=== PATIENT | male | born 1935 | race Caucasian/White ===

== ENCOUNTER → 2023-09-20 13:34 | Outpatient (REF) | payer OTHER, SELFPAY | LOC: DHCBC HW 13:34 | PROVIDERS: ATTENDING PHYSICIAN Internal Medicine Cardiovascular Disease; FAMILY PHYSICIAN Family Medicine | DX: I48.91 Unspecified atrial fibrillation (principal); Z95.1 Presence of aortocoronary bypass graft; I25.5 Ischemic cardiomyopathy; I25.119 Atherosclerotic heart disease of native coronary artery with unspecified angina pectoris; I49.3 Ventricular premature depolarization | CPT/HCPCS: 93306 ==

== ENCOUNTER 2024-01-02 08:37 | Inpatient (IN) | payer OTHER, SELFPAY ==
[2024-01-01] VITALS (8 sets, daily range): BP systolic 117–181; BP diastolic 57–104; BMI 26.5; BMI 26.8
--- NOTE | 2024-01-01 07:41 | ED.GENMED ---
History of Present Illness
General
Chief Complaint: Eye Problems
Source: patient
Exam Limitations: none
Time Seen by Provider: 01/01/24 07:23
Nursing documentation reviewed up to this point in time: agreed with
Travel History
Have you had any contact with someone who has COVID-19?: No
Do you have any symptoms of coronavirus? Fever > 100 degrees, chills, cough, shortness of breath, sore throat, loss of taste or smell, muscle aches, or headache?: No
History of Present Illness
History of Present Illness:
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
of visual disturbance. Patient was last around 7:30 PM he was watching TV when he noticed he was having double vision. He reports when he closes his left eye the double vision resolved. When he went to bed he noticed that his left eye seemed a
little droopy. He did not sleep well because he was worried and this morning continues to have double vision again when he closes his left eye his vision is better. He denies any associated headache numbness tingling weakness in extremities. He
did however drive himself here to the ER.
He does report 2 weeks ago he out and did trip and hit the left side of his head. He is not on blood thinners.
Review of Systems
Review of Systems
Allergies reviewed?: Yes
All Other Systems: ROS reviewed and negative except as documented in HPI and ROS
Constitutional: Reports no symptoms; Denies fever, fatigue or chills
EENT: Reports other (Double vision from left eye)
Cardiac: Reports no symptoms
ABD/GI: Reports no symptoms
: Reports no symptoms
Musculoskeletal: Reports no symptoms
Skin: Reports no symptoms
Neurological: Denies dizzy or headache
Psychiatric: Reports no symptoms
Phy Exam
General Physical Exam
General Presentation: no apparent distress
General age: appears stated age
General Skin: warm and dry
General Habitus: normal
General Mental: alert
General Hydration: appears well hydrated
Eye Exam
Eye Exam: PERRL and other (left eye with decreased adduction slight ptosis of left eye and in theFollow-up with)
Eye Exam General: PERRL: bilateral
Pupil Exam: Bilateral: round and reactive
Cardiovascular Exam
Cardiovascular Exam: regular rate/rhythm, no murmur and normal peripheral pulses
Pulmonary Exam
Pulmonary Exam: lungs clear and no respiratory distress
Neurological Exam
Neurological Exam: alert, oriented x3, no motor deficits, normal reflexs and speech normal
Musculoskeletal Exam
Musculoskeletal Exam: full ROM
Skin Exam
Skin Exam: normal color and warm/dry
Psychiatric Exam
Psychiatric Exam: normal mood/affect
Course
Orders/Labs/Results
Orders:
Orders
01/01/24 07:39
CT Head W/o Iv Contrast Urgent
Comment:
Reason For Exam: double vision
01/01/24 07:40
Cardiac Monitoring- Treatment ONCE
IV Insert/Care/Rem.- Treatment PRN
01/01/24 07:41
Electrocardiogram (*1) Stat
Reason for Study: Other
Other Reason for Exam: chest pain
EKG- Treatment ONCE
01/01/24 08:20
Acetylcholine Receptor Bind Ab [S] Urgent
Comment: ADD-ON
Complete Blood Count/With Diff Urgent
Comprehensive Metabolic Panel Urgent
Troponin I Urgent
01/01/24 09:55
MRI Brain [MR Brain W/o & With Contrast] Urgent
Comment:
Reason For Exam: double vision
OK for patient to be off Cardiac Monitoring for MRI: Yes
Recent pill cam endoscopy?: No
01/01/24 09:56
MA [facility] [place] [facility] Urgent
Reason For Exam: double vision
OK for patient to be off Cardiac Monitoring for MRI: Yes
Recent pill cam endoscopy?: No
01/01/24 09:58
Add On- LAB Routine
Tests Added?: Acetylcholine blocking, binding, modulating antibodies
01/01/24 15:57
Clopidogrel Bisulfate [Plavix] 300 mg PO NOW STA
US Cerebrovascular Routine
Comment:
Reason For Exam: Stroke workup
01/01/24 15:58
Echo 2D MMode Color/Doppler Routine
Reason for Study: Thrombotic source for stroke-like sxs
01/02/24 08:00
Clopidogrel Bisulfate [Plavix] 75 mg PO DAILY
Abnormal Lab Results
01/01/24 01/01/24
08:20 12:06
RBC 3.97 L 10^6/uL
(4.70-6.10)
Hct 38.5 L %
(39.0-52.0)
MCV 97.0 H fL
(80.0-94.0)
MCH 33.0 H pg
(27.0-31.0)
BUN 24 H mg/dl
(9-20)
Glucose 271 H mg/dl
(70-99)
Alkaline Phosphatase 145 H U/L
(38-126)
POC Glucose 148 H mg/dl
(70-99)
01/01/24 08:20
01/01/24 08:20
Vital Signs
Initial and Last Documented VS:
Initial Vital Signs
Temp Pulse Resp BP Pulse Ox
98.0 F 72 16 181/89 98
01/01/24 06:52 01/01/24 06:52 01/01/24 06:52 01/01/24 06:52 01/01/24 06:52
Last Documented Vital Signs
Temp Pulse Resp BP Pulse Ox
98.0 F 65 12 155/104 99
01/01/24 06:52 01/01/24 10:15 01/01/24 10:15 01/01/24 09:30 01/01/24 10:15
Soccer Commentator consulted with Physician
Soccer Commentator consulted with physician?: Yes
Name of Physician Consulted: Missy
MDM/Problems Addressed
Differential Diagnosis Includes:
Not limited to palsy, CVA
MDM/Problems Addressed:
Patient is an 88-year-old male who presented with blurry vision and double vision from his left eye which started last night. Patient with no associated headache. No acute findings on CAT scan. Patient has no other neurological deficits. Patient
was eval by neurology who does feel that this is likely a palsy. 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
1603:
MRA :
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 Neuro aware DR Craven ordered
plavix will admit
*Radiology
Radiology exam reviewed: radiology read reviewed
*Pulse Oximetry
Patient hypoxic: no
*EKG
Interpreted by ED Provider?: Yes
Interpretation: abnormal
Heart Rate: 62
Rate: normal
Rhythm: sinus
Ischemia: no ischemia
*Critical Care Note
Total Time (30-74mins, 75-104mins- exclusive of procedures): Not Applicable
ED Attending Note
-
Portions of this chart may have been created with voice recognition software.� Occasional wrong word or��sound alike� substitutions may have occurred due to the inherent limitations of voice recognition software.
Discharge Plan
Departure
Patient Disposition: Admit
Date of Disposition: 01/01/24
Time of Disposition: 16:16
Admit to: Telemetry
Admit to doctor: hospitalist
Presentation/result/management discussed w/ accepting MD/DO: Hospitalist
Patient with high blood pressure during this ER visit?: Yes
Condition: Fair
Covid-19: Not Applicable
Discharge Problem:
Acute CVA (cerebrovascular accident), Diplopia
Prescriptions:
No Action
insulin glargine [Lantus U-100 Insulin] 1,000 UNITS/10 ML solution
40 units SC HS
atenolol 100 MG tablet
50 mg PO HS
allopurinol 100 MG tablet
200 mg PO .DINNER
aspirin 81 MG tablet,delayed release (DR/EC)
81 mg PO DAILY
simvastatin 20 MG tablet
20 mg PO HS
metformin 1,000 MG tablet
1,000 mg PO BID
hydrochlorothiazide 25 MG tablet
25 mg PO DAILY
acetaminophen 325 MG tablet
650 mg PO Q4HPRN PRN (Reason: TEMP > 102 F) Qty: 0 0RF
amiodarone [Pacerone] 200 MG tablet
200 mg PO BID Qty: 90 3RF
Rx Instructions:
Take one tablet twice daily for 7 days, then thereafter reduce to one table daily until you see your Brake Coupler Dinkey. Then reevaluate with Cardiology.
multivitamin with folic acid [Tab-A-Joslyn] 1 TABLET tablet
1 tab PO DAILY 0RF
guaifenesin [Mucus Relief ER] 600 MG tablet extended release 12hr
600 mg PO Q12 Qty: 14 0RF
Rx Instructions:
One tablet twice daily for 7 days then stop
famotidine 20 MG tablet
20 mg PO DAILY 30 Days 0RF
oxycodone 5 MG tablet
5 mg PO Q6HPRN PRN (Reason: pain) Qty: 40 0RF
warfarin [Jantoven] 2.5 MG tablet
2.5 mg PO QPM Qty: 90 3RF
Rx Instructions:
Take 5 mg (2 tablets) daily or as directed by your Physician for a target INR of 2.0-3.0
Referrals:
Sebastian Roman MD [Family Provider] -
Interventions
Interventions:
*Risk Screen - Suicide Last Done: 01/01/24 08:24
*General Assessment Last Done: 01/01/24 08:24
*Neglect/Abuse Screening Last Done: 01/01/24 08:24
ED- Fall Risk Assessment Last Done: 01/01/24 08:24
*ED COVID-19 Vaccine History Last Done: 01/01/24 06:52
Discharge Date and Time
Print Language: ANDORRAN
[2024-01-01 08:28] LABS: % Basophils 1.4 % (0-2); % Eosinophils 2.1 % (0-6); % Immature Granulocytes 0.2 % (0-0.5); % Lymphocytes 24.3 % (20.5-51.1); % Monocytes 8.9 % (1.7-9.3); % Neutrophils 63.1 % (42.2-75.2); Absolute Basophils 0.1 10^3/uL (0-0.2); Absolute Eosinophils 0.1 10^3/uL (0-0.7); Absolute Lymphocytes 1.4 10^3/uL (1.2-3.4); Absolute Monocytes 0.5 10^3/uL (0.1-0.6); Absolute Neutrophils 3.5 10^3/uL (1.4-6.5); Hematocrit 38.5 % (39.0-52.0); Hemoglobin 13.1 g/dL (13.0-18.0); Mean Platelet Volume 9.6 fL (7.4-10.4); Nucleated Red Blood Cells % 0 % (-); Platelet Count 235 10^3/uL (130-400); Red Blood Cell Count 3.97 10^6/uL (4.70-6.10); White Blood Cell Count 5.6 10^3/uL (4.8-10.8)
[2024-01-01 08:41] LABS: ALT (SGPT) 19 U/L (0-50); AST (SGOT) 23 U/L (17-59); Albumin 3.6 g/dl (3.5-5.0); Alkaline Phosphatase 145 U/L (38-126); Blood Urea Nitrogen 24 mg/dl (9-20); Calcium 8.8 mg/dl (8.4-10.2); Carbon Dioxide 26 mmol/L (22-30); Chloride 101 mmol/L (98-107); Glucose 271 mg/dl (70-99); Potassium 4.9 mmol/L (3.5-5.1); Sodium 135 mmol/L (135-145); Total Bilirubin 0.5 mg/dl (0.2-1.3); Total Protein 6.5 g/dl (6.3-8.2); eGFR > 60.00
[2024-01-01 08:52] LABS: Troponin I < 0.012 ng/ml
--- NOTE | 2024-01-01 09:58 | CON.NEURO4 ---
Addendum entered and electronically signed by Norman Craven MD 01/01/24 16:01:
MRI brain reviewed there is an acute stroke in the right tania which does explain the patient's symptoms, although typically such as stroke would probably occur in the midbrain the MRI clearly shows a stroke on the right side of the tania and this
probably affected areas of horizontal gaze and muscle control on the right eye producing his presenting symptoms.
No endovascular therapy would be warranted for the vertebral artery.
Stroke etiology most likely small vessel disease versus atheroembolic from the vertebral artery occlusion
Recommendations
-Admission for acute stroke
-NIH and neurologic checks
-Plavix 300 mg now and start DAPT tomorrow
-Check TTE and carotid ultrasound
-Goal normotension, would aim for SBP less than 180
Original Note:
Consultation - Neurology 4
-
CONSULTING PHYSICIAN: Fran Craven
REFERRING PHYSICIAN: ER
DICTATED BY: Fran Craven
DATE/TIME OF REQUEST: 01/01/24
DATE/TIME OF CONSULTATION: 01/01/24
Reason for Consultation: Double vision, ptosis
History of Present Illness:
The patient is an 88-year-old male with a past medical history of atrial fibrillation, coronary artery disease, diabetes, CKD presents to the hospital because of double vision seem to start around yesterday evening when he was watching TV. This
was painless and there has not been any unusual headaches or eye pain in the past couple of days. He has not had any unusual headaches. He did have a fall around 2 weeks ago tripping over something and hit the left side of his head but he was able
to walk and do fine over the next couple days with no sequelae from the fall.
The double vision was described as binocular and somewhat diagonal, it is worse when he looks to the right. He has never had anything like this before. No history of any jaw claudication fevers chills or unusual weight loss. He wears glasses with
readers. No unilateral weakness or paresthesia on the face or limbs no unusual walking difficulty or slurred speech. No dysphagia.
Past Medical History: Coronary artery disease, atrial fibrillation, diabetes, hypertension, CKD
Surgical History: CABG
Family History: Non-contributory
Social History: Retired from working in [employer], he is a , lives on his own, no alcohol use at all, no tobacco
Allergies: No known drug allergies
Review of Symptoms:
Patient denies any fever, headache, chest pain, shortness of breath, GI or symptoms.
Physical Exam:
Well-appearing elderly man no signs of distress, well-groomed well-nourished no signs of trauma to the head or neck, eyes are clear with no erythema or ecchymosis or swelling near the eyes conjunctiva clear, there is left eye ptosis clearly visible.
Neck with no masses heart rate regular breathing unlabored abdomen soft nontender no lower extremity edema or rashes seen.
Neurologic Examination:
The patient is awake, alert and oriented x 3. He is able to follow commands and answer questions appropriately. There is no aphasia or dysarthria. On cranial nerve assessment, pupils are 3 mm bilateral, round and reactive to light and
accommodation. Visual hoffmann are full. V1-V3 intact to light touch bilaterally. There is significant left eye ptosis. Resting gaze is midline and conjugate. Left eye has impaired adduction. Left eye elevation, abduction, depression appear
normal. Facial sensations are intact and bilaterally symmetrical, there is no facial asymmetry. Hearing is intact bilaterally to normal conversation volume. Tongue palate and uvula are midline. Sternocleidomastoid strengths are full bilaterally.
Motor strengths are 5/5 bilateral upper and lower extremities on medical research [place] scale. There is no drift or involuntary movement noted. Deep tendon reflexes are 2+ bilateral upper and lower extremities and Babinski is absent bilaterally.
Intact to light touch throughout. There was no extinction noted on double simultaneous stimulation. Coordination is intact by finger to nose bilaterally.
Neuro Imaging: CT head non contrast
Impressions
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 MRI studies would be useful to rule out cerebral aneurysm as well as infarct of the midbrain or tania
which is unlikely based on absence of other deficits on neurologic examination and no headache. Recent head trauma is less likely to have caused the problem but is possible, head trauma more often produces a cranial nerve 4 palsy. No history of
symptoms highly suggestive of myasthenia gravis which would remain in differential.
Patient has the following risk factors for their symptoms: Diabetes, CAD, HTN
Recommendations:
1. Add on acetylcholine blocking binding and modulating antibodies
2. Check MRI of the brain with and without contrast as well as MRA of the head
3. If no infarction of the brain or aneurysm on the studies then I would presume this is a diabetic cause of partial cranial nerve III palsy, and in this case would not require any change of antithrombotics or home medications and would continue
best management of diabetes. Expect improvement over several weeks to a few months.
4. Discussed that patient needs to have an eye patch over 1 eye to resolve the diplopia but is otherwise acceptable for driving as long as he has an eye patch.
Discussed patient care with: Patient, ED
[2024-01-01 12:08] LABS: Glucose - Point of Care 148 mg/dl (70-99)
--- NOTE | 2024-01-01 16:42 | HPS.HSE ---
Family Physician
-
Family Physician: Sebastian Roman
Chief Complaint
-
double vision
History of Present Illness
88-year-old male past medical history of CAD status post CABG x 4, ischemic cardiomyopathy, hypertension, hyperlipidemia, diabetes, CKD3, presenting to the hospital due to double vision which started yesterday evening while he was watching TV. He
denies any headache or eye pain or neck pain. He had a fall 2 weeks ago tripping over something and hit the left side of his head but he had no symptoms after the fall.
Double vision occurs when he closes his right eye and looks from his left eye. He denies any fever or chills, weight loss or jaw pain. He denies any focal weakness, numbness or tingling, gait dysfunction, slurred speech or difficulty swallowing.
Patient is not sure if he has had a history of atrial fibrillation. He denies being on Coumadin or any blood thinners.
He denies smoking or alcohol use.
Medical History
Past Medical History
Past Medical History: Reports Other (CAD status post CABG x 4, ischemic cardiomyopathy, hypertension, hyperlipidemia, diabetes, CKD3)
Past Surgical History: Reports None
Social History
Tobacco: Non-smoker
Alcohol: None
Drug: None
Family History
Family History: Not pertinent
Allergies / Home Medications
Allergies reflects when Allergies were last updated in [employer].
Home Medications with original date entered in [employer]
Allergy/Medication List:
Allergies
Allergy/AdvReac Type Severity Reaction Status Date / Time
No Known Allergies Allergy Verified 01/01/24 06:54
Home Medications
allopurinol 100 mg tablet 200 mg PO .DINNER 04/25/16
aspirin 81 mg tablet,delayed release 81 mg PO DAILY 04/25/16
atenolol 100 mg tablet 50 mg PO HS 04/25/16
hydrochlorothiazide 25 mg tablet 25 mg PO DAILY 04/25/16
insulin glargine 100 unit/mL subcutaneous solution (Lantus U-100 Insulin) 40 units SC HS 04/25/16
metformin 1,000 mg tablet 1,000 mg PO BID 04/25/16
simvastatin 20 mg tablet 20 mg PO HS 04/25/16
acetaminophen 325 mg tablet 650 mg (2 x 325 mg) PO Q4HPRN PRN TEMP > 102 F ##0 05/25/16
amiodarone 200 mg tablet (Pacerone) 200 mg PO BID ##90 05/25/16
famotidine 20 mg tablet 20 mg PO DAILY 30 days 05/25/16
guaifenesin 600 mg tablet, extended release 12 hr (Mucus Relief ER) 600 mg PO Q12 ##14 05/25/16
multivitamin with folic acid 400 mcg tablet (Tab-A-Joslyn) 1 tab PO DAILY 05/25/16
oxycodone 5 mg tablet 5 mg PO Q6HPRN PRN pain #40 tabs 05/25/16
warfarin 2.5 mg tablet (Jantoven) 2.5 mg PO QPM #90 tabs 05/25/16
Review of Systems
-
History Source: Patient
A 12 point ROS was completed and negative except as noted: Yes
Constitutional: Reports No Symptoms
EENT: Reports No Symptoms
Respiratory: Reports No Symptoms
Cardiac: Reports No Symptoms
Abdomen/GI: Reports No Symptoms
: Reports No Symptoms
Musculoskeletal: Reports No Symptoms
Skin: Reports No Symptoms
Neurological: Reports See HPI
Endocrine: Reports No Symptoms
Hematologic/Lymphatic: Reports No Symptoms
Psych: Reports No Symptoms
Physical Exam
Vital Signs
Vital Signs
Temp Pulse Resp BP Pulse Ox
98.0 F 68 12 117/57 99
01/01/24 06:52 01/01/24 16:17 01/01/24 10:15 01/01/24 16:17 01/01/24 10:15
Physical Exam
General: Well Developed, Well Nourished and No Apparent Distress
HEENT: NormoCephalic, Moist mucous membranes and Atraumatic
Respiratory: Clear
Cardiac: S1/S2 and Regular Rhythm; No Murmur or Rub
GI: Soft, Non Tender, Non Distended and Normal Bowel Sounds; No Organomegaly
Rectal: Deferred by Provider
Musculoskeletal: No Clubbing, No Cyanosis and No Edema
Skin: No Rash
Neuro: Nonfocal/grossly intact
Laboratory Results
-
01/01/24 08:20
01/01/24 08:20
Laboratory Results
Total Bilirubin 0.5 mg/dl (0.2-1.3) 01/01/24 08:20
AST 23 U/L (17-59) 01/01/24 08:20
ALT 19 U/L (0-50) 01/01/24 08:20
Alkaline Phosphatase 145 U/L (38-126) H 01/01/24 08:20
Troponin I < 0.012 ng/ml 01/01/24 08:20
Data Reviewed
-
Lab Data: Labs Reviewed by me
Old Records: Reviewed
Impression/Plan
-
IMPRESSION:
PLAN:
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
-Neurochecks/NIH checks per protocol
-Plavix 300 mg in addition to aspirin
-Check carotid ultrasound
-Check echocardiogram
-neuro following
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
-Incidentally discovered on MRI brain
Possible history of paroxysmal atrial fibrillation
-Patient denies history of atrial fibrillation and denies being on Coumadin although old med rec has Coumadin and amiodarone
CAD status post CABG x 4
-Continue aspirin
Ischemic cardiomyopathy
Essential hypertension
-Continue atenolol
-Continue hydrochlorothiazide
Hyperlipidemia
-Continue statin
Type 2 diabetes
-Continue metformin
-Continue Lantus 40 units at night
-Insulin sliding scale
CKD 3
-Renal function at baseline
Gout
-Continue allopurinol
DNR/DNI
DVT prophylaxis�SCDs
Diabetic diet
[2024-01-01] MEDS: PLAVIX 300 MG PO (17:26)
--- NOTE | 2024-01-01 18:39 | PHANOTE ---
med rec note- patient using mail order and they only talk to the patient. patient has no pharmacy records and ecw from August 2023
[2024-01-01] MEDS: LANTUS 0.400000000000000022 UNITS SC (22:27)
[2024-01-01] MEDS: GLUCOPHAGE 1000 MG PO (22:27)
[2024-01-01] MEDS: COREG 6.25 MG PO (22:27)
[2024-01-01] MEDS: LIPITOR 40 MG PO (22:29)
[2024-01-01 22:31] LABS: Glucose - Point of Care 161 mg/dl (70-99)
[2024-01-02 03:28] VITALS: BP 149/62
[2024-01-02 07:14] LABS: % Basophils 0.9 % (0-2); % Eosinophils 1.3 % (0-6); % Immature Granulocytes 0.4 % (0-0.5); % Lymphocytes 22.1 % (20.5-51.1); % Monocytes 9.7 % (1.7-9.3); % Neutrophils 65.6 % (42.2-75.2); Absolute Basophils 0.1 10^3/uL (0-0.2); Absolute Eosinophils 0.1 10^3/uL (0-0.7); Absolute Lymphocytes 1.7 10^3/uL (1.2-3.4); Absolute Monocytes 0.8 10^3/uL (0.1-0.6); Absolute Neutrophils 5.1 10^3/uL (1.4-6.5); Hematocrit 42.2 % (39.0-52.0); Hemoglobin 14.2 g/dL (13.0-18.0); Mean Corp Hgb Conc. 33.6 g/dL (33.0-37.0); Mean Corpuscular Hgb 32.5 pg (27.0-31.0); Mean Corpuscular Volume 96.6 fL (80.0-94.0); Mean Platelet Volume 9.9 fL (7.4-10.4); Nucleated Red Blood Cells % 0 % (-); Platelet Count 278 10^3/uL (130-400); Red Blood Cell Count 4.37 10^6/uL (4.70-6.10); Red Cell Dist. Width 13.1 % (11.5-14.5); White Blood Cell Count 7.8 10^3/uL (4.8-10.8)
[2024-01-02 07:24] VITALS: BP 144/84
[2024-01-02 07:39] LABS: ALT (SGPT) 20 U/L (0-50); AST (SGOT) 24 U/L (17-59); Albumin 3.8 g/dl (3.5-5.0); Alkaline Phosphatase 138 U/L (38-126); Blood Urea Nitrogen 24 mg/dl (9-20); Calcium 9.3 mg/dl (8.4-10.2); Carbon Dioxide 28 mmol/L (22-30); Chloride 102 mmol/L (98-107); Estimated Creatinine Clearance 53 ml/min; Glucose 110 mg/dl (70-99); Potassium 5.1 mmol/L (3.5-5.1); Sodium 138 mmol/L (135-145); Total Bilirubin 0.8 mg/dl (0.2-1.3); Total Protein 6.9 g/dl (6.3-8.2); eGFR > 60.00
[2024-01-02 08:23] LABS: Glucose - Point of Care 216 mg/dl (70-99)
[2024-01-02] MEDS: GLUCOPHAGE 1000 MG PO ×2 (08:40→17:13)
[2024-01-02] MEDS: ASPIR LOW (ENTERIC COATED) 81 MG PO (08:40)
[2024-01-02] MEDS: OCUVITE SOFTGEL 1 CAP PO (08:40)
[2024-01-02] MEDS: COREG 6.25 MG PO ×2 (08:40→20:29)
[2024-01-02] MEDS: PLAVIX 75 MG PO (08:40)
[2024-01-02] MEDS: NOVOLOG FLEXPEN-LOW RESISTANCE 2 UNITS SC (08:41)
--- NOTE | 2024-01-02 08:48 | W.PN.HOSP.TC ---
Addendum entered and electronically signed by Trev Ronquillo MD 01/02/24 09:09:
Discussed with on-call mortarman Dr Ng. They will set up a 30-day Holter monitor.
Original Note:
Today's Communication/Plan
-
Continue dual antiplatelet agents
Check echocardiogram
Consult cardiology
PT OT eval
CW Tele
Assessment / Plan
Assessment / Plan
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
-Etiology likely atherosclerosis.
-Patient has not found history of atrial fibrillation. Last Holter monitor did not show any evidence of A-fib. Will ask mortarman to look into the need of longer cardiac rhythm monitoring.
In meantime continue with the dual antiplatelet agents.
No indication for internal carotid artery interventions.
Follow blood pressure closely.
Check hemoglobin A1c.
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
-Incidentally discovered on MRI brain
Possible history of paroxysmal atrial fibrillation
-Patient denies history of atrial fibrillation and denies being on Coumadin although old med rec has Coumadin and amiodarone
-Consult cardiology for evaluation of A-fib.
CAD status post CABG x 4
-Continue aspirin
Ischemic cardiomyopathy
Essential hypertension
-Continue atenolol
-Continue hydrochlorothiazide
Hyperlipidemia
-Continue statin
Type 2 diabetes
-Continue metformin
-Continue Lantus 40 units at night
-Insulin sliding scale
CKD 3
-Renal function at baseline
Gout
-Continue allopurinol
DNR/DNI
DVT prophylaxis�SCDs
Diabetic diet
Old records from [facility] noted
Discussed with neurology regarding the plan.
Anticipated Discharge: 24 - 48 hours
Subjective/Interval History
-
Date of Service: January 02, 2024
Improved diplopia. Not seeing any diplopia today.
Voices no other specific complaints.
Objective Data
-
Labs:
Laboratory Results
01/02/24
06:15
WBC 7.8
Hgb 14.2
Hct 42.2
Plt Count 278
Sodium 138
Potassium 5.1
Chloride 102
Carbon Dioxide 28
BUN 24 H
Creatinine 1.0
Glucose 110 H
Calcium 9.3
Total Bilirubin 0.8
AST 24
ALT 20
Alkaline Phosphatase 138 H
Vital Signs:
Vital Signs
Temp Pulse Resp BP Pulse Ox
97.4 F 67 20 144/84 97
01/02/24 07:24 01/02/24 08:40 01/02/24 07:24 01/02/24 08:40 01/02/24 07:24
I&O
01/01/24 01/02/24 01/03/24
06:59 06:59 06:59
Intake Total 120 / 120
Balance 120 / 120
Review of Systems
-
Respiratory: Denies Trouble Breathing
Cardiac: Denies Chest Pain or Palpitations
Neuro: Denies Headache, Weakness, Numbness, Ataxia, Tremors or Lightheadedness
Physical Exam
-
General: Comfortable
HEENT: Moist Mucous Membranes
Cardiac: Regular Rhythm and S1/S2
Neuro: AO x 3 and No Motor Deficits; Negative Tremors, Slurred Speech, Facial Droop or Other (Extraocular movements intact)
Psych: Calm; Negative Confused
Data Reviewed
-
Labs: Labs Reviewed by me
[2024-01-02 08:56] LABS: Glycohemoglobin (HgbA1c) 8.4 % (4.0-5.6)
[2024-01-02 10:00] LABS: HDL Cholesterol 29 mg/dl; LDL Cholesterol, Calculated 41 mg/dl; Total Cholesterol 90 mg/dl (50-199); Triglyceride 103 mg/dl (10-149); Very Low Density Lipoprotein 20 mg/dl (0-30)
--- NOTE | 2024-01-02 10:01 | W.PN.NEURO.1 ---
Today's Communication / Plan
-
Recommendations
Clopidogrel 75 mg now and aspirin for 21 days then clopidogrel 75 mg routinely
Goal normotension, would aim for SBP less than 180
Continue Atorvastatin 40 mg daily
Neuro Assessment/Plan
Assessment
MRI brain reviewed there is an acute stroke in the right tania which does explain the patient's symptoms, although typically such as stroke would probably occur in the midbrain the MRI clearly shows a stroke on the right side of the tania and this
probably affected areas of horizontal gaze and muscle control on the right eye producing his presenting symptoms.
No endovascular therapy would be warranted for the vertebral artery.
Stroke etiology most likely small vessel disease versus atheroembolic from the vertebral artery occlusion
Plan
Recommendations
Clopidogrel 75 mg now and aspirin for 21 days then clopidogrel 75 mg routinely
Goal normotension, would aim for SBP less than 180
Continue Atorvastatin 40 mg daily
goal of normotension
Will follow as needed. Thank you.
Subjective/Objective
Subjective Data
Date of Service: January 02, 2024
'Improved'
Objective Data
Vital Signs
Temp Pulse Resp BP Pulse Ox
36.3 C 67 20 144/84 97
01/02/24 07:24 01/02/24 08:40 01/02/24 07:24 01/02/24 08:40 01/02/24 07:24
Lab Results
01/02/24 06:15
01/02/24 06:15
Sodium 138 mmol/L (135-145) 01/02/24 06:15
Potassium 5.1 mmol/L (3.5-5.1) 01/02/24 06:15
BUN 24 mg/dl (9-20) H 01/02/24 06:15
Glucose 110 mg/dl (70-99) H 01/02/24 06:15
Calcium 9.3 mg/dl (8.4-10.2) 01/02/24 06:15
LDL Cholesterol, Calc 41 mg/dl 01/02/24 06:15
Patient Allergies
No Known Allergies Allergy (Verified 01/01/24 06:54)
Review of Systems
-
History Source: Patient
All other systems: Reviewed and negative
Physical Exam
-
General: No Apparent Distress and Appears Stated Age
Eyes: Round OU, Bonney Conjunctivae and No Ptosis
HEENT: Anicteric and Moist Mucous Membranes
Neck: Full Range of Motion
Respiratory: No Dyspnea
Cardiac: No JVD
GI: Non-distended
Skin: Unremarkable
Extremities: No Clubbing, No Cyanosis and No Edema
Psych: Intact Judgement/Insight
Extended Neurological Exam
Mood & Affect: Mood Unremarkable and Affect Unremarkable
Attention Span & Concentration: Awake, Alert and Interactive
Memory: Unremarkable
Tremor: Hand Tremor Absent and Head Tremor Absent
Speech: Quality Unremarkable and Quantity Unremarkable
Cranial Nerve II: Left Eye: Pupillary Size Unremarkable and Visual Richards Grossly Intact
Cranial Nerve II: Right Eye: Pupillary Size Unremarkable and Visual Richards Grossly Intact
Cranial Nerves III, IV, : Extraocular Movement: Grossly Intact
Cranial Nerve VII: Facial Symmetry: Normal Facial Symmetry
Cranial Nerve VIII: Hearing: Unremarkable Hearing to Normal Conversational Volume
Muscle Strength, Overall: Spontaneously Moves (all ext.)
Muscle Bulk & Tone: Bulk Unremarkable
Coordination: Reaches for Objects without Difficulty
Data Reviewed
-
MRI Head: Image Reviewed
Reviewed with: Physician and Patient
Old Records: Summarized
[2024-01-02 10:35] LABS: TSH Reflex To Free T4 7.58 uIU/ml (0.47-4.68)
[2024-01-02 11:05] VITALS: BP 141/77
[2024-01-02 11:09] LABS: Erythrocyte Sed Rate 17 mm/hour (0-20)
[2024-01-02 11:11] LABS: Folate > 20.0 ng/ml (2.76-20); Vitamin B12 327 pg/ml (239-931)
[2024-01-02 12:15] LABS: Glucose - Point of Care 112 mg/dl (70-99)
[2024-01-02] MEDS: NOVOLOG FLEXPEN-LOW RESISTANCE SC (12:44)
--- NOTE | 2024-01-02 15:39 | CM ---
Alert awake oriented patient who lives alone. (His in recently) in a 2 story home with 3 step to enter and 13 steps to bed and bathroom. He is independent in driving and in all activities of daily living.He has a stair glide.He was offered
VN he declined.
No VN hx / No SNF history
Pharmacy [facility] [address] [place] [address] Sebastian Roman
PLAN Home Declined VN
[2024-01-02 16:00] VITALS: BP 159/76
[2024-01-02 17:08] LABS: Glucose - Point of Care 151 mg/dl (70-99)
[2024-01-02] MEDS: NOVOLOG FLEXPEN-LOW RESISTANCE 1 UNITS SC (17:13)
[2024-01-02] MEDS: ZYLOPRIM 200 MG PO (17:13)
[2024-01-02 19:11] VITALS: BP 150/76
[2024-01-02] MEDS: LIPITOR 40 MG PO (20:29)
[2024-01-02 21:52] LABS: Glucose - Point of Care 134 mg/dl (70-99)
[2024-01-02] MEDS: LANTUS 0.400000000000000022 UNITS SC (22:18)
[2024-01-02 23:14] VITALS: BP 135/62
[2024-01-03 03:43] VITALS: BP 140/85
[2024-01-03 07:00] VITALS: BP 153/84
[2024-01-03 07:43] LABS: HDL Cholesterol 29 mg/dl; LDL Cholesterol, Calculated 38 mg/dl; Total Cholesterol 85 mg/dl (50-199); Triglyceride 94 mg/dl (10-149); Very Low Density Lipoprotein 18 mg/dl (0-30)
[2024-01-03 07:48] LABS: Glucose - Point of Care 87 mg/dl (70-99)
[2024-01-03] MEDS: NOVOLOG FLEXPEN-LOW RESISTANCE SC ×2 (07:52→12:12)
[2024-01-03] MEDS: GLUCOPHAGE 1000 MG PO (07:55)
[2024-01-03] MEDS: PLAVIX 75 MG PO (07:55)
[2024-01-03] MEDS: COREG 6.25 MG PO (07:55)
[2024-01-03] MEDS: OCUVITE SOFTGEL 1 CAP PO (07:55)
[2024-01-03] MEDS: ASPIR LOW (ENTERIC COATED) 81 MG PO (07:55)
[2024-01-03 11:00] VITALS: BP 157/76
--- NOTE | 2024-01-03 11:05 | W.PN.HOSP.TC ---
Today's Communication/Plan
-
DC home.
Assessment / Plan
Assessment / Plan
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
-Etiology likely atherosclerosis.
-Patient has not found history of atrial fibrillation. Last Holter monitor did not show any evidence of A-fib. Discussed with primary welding technician team on-call Dr. Ng-they will arrange 30-day Holter monitor. No atrial arrhythmias so far in
the hospital.
In meantime continue with the dual antiplatelet agents. Plan is to continue Plavix after doing 21 days of aspirin. Discussed this with the neurologist today.
No indication for internal carotid artery interventions.
LDL 38. Blood pressure under goal mostly
hemoglobin A1c 8.4. Stressed about the importance of glycemic control to prevent small vessel disease and strokes.
Echocardiogram shows EF 55 to 60%. No significant changes in the cardiac function compared to the prior study from August 2023
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
-Incidentally discovered on MRI brain
Possible history of paroxysmal atrial fibrillation
-Patient denies history of atrial fibrillation and denies being on Coumadin although old med rec has Coumadin and amiodarone
-Discussed with [id number] Holter monitor will be arranged.
CAD status post CABG x 4
-Continue aspirin
Ischemic cardiomyopathy
Essential hypertension
-Continue atenolol
-Continue hydrochlorothiazide
Hyperlipidemia
-Continue statin
Type 2 diabetes
-Hemoglobin A1c 8.4 but his blood sugars have been decently controlled in the hospital. Suspect dietary indiscretions. Advised to be compliant with the diet
-Continue metformin
-Continue Lantus 40 units at night
-Follow with PCP
CKD 3
-Renal function at baseline
Gout
-Continue allopurinol
DNR/DNI
DVT prophylaxis�SCDs
Medically stable for discharge home today.
Discussed with neurology
Total time of discharge 32 minutes
Anticipated Discharge: Today
Subjective/Interval History
-
Date of Service: January 03, 2024
Improved but still states the diplopia especially when looking up. resolves closing left eye.
No new symptoms.
Denies any headache.
Denies any limb weakness.
Objective Data
-
Vital Signs:
Vital Signs
Temp Pulse Resp BP Pulse Ox
97.5 F 74 18 153/84 97
01/03/24 07:00 01/03/24 07:00 01/03/24 07:00 01/03/24 07:00 01/03/24 07:00
I&O
01/02/24 01/03/24 01/04/24
06:59 06:59 06:59
Intake Total 120 / 120 1320 / 1320
Balance 120 / 120 1320 / 1320
Review of Systems
-
Respiratory: Denies Trouble Breathing
Cardiac: Denies Chest Pain or Palpitations
Neuro: Denies Dizzy or Headache
Physical Exam
-
General: No Apparent Distress
HEENT: Moist Mucous Membranes
Respiratory: Clear to Auscultation
Cardiac: Regular Rhythm (No atrial arrhythmias on the monitor) and S1/S2
Neuro: AO x 3, No Motor Deficits and Other (No LR or MR palsy. Patient had diplopia when looking up and to the left side); Negative Tremors, Slurred Speech or Facial Droop
Psych: Calm
Data Reviewed
-
Labs: Labs Reviewed by me
--- NOTE | 2024-01-03 11:18 | W.DS.TRANS ---
DC Summary - Patient Services Specialist
-
Discharge Instructions:
Discharge Diagnosis/Procedures Acute stroke
Diet Diabetic, Carb Controlled
Activity As tolerated
Driving Restrictions Not until seen by your Dr
Bathing Restrictions None
Others Tests A heart monitor has been ordered by your
door serviceman office. This will be mailed to
your home.
Instructions:
Stand-Alone Forms:
Changes to Home Medications: Yes
Discharge Medications:
DC Medications w/original date entered in [facility]
allopurinol 100 mg tablet 200 mg PO QPM Gout 04/25/16
insulin glargine 100 unit/mL subcutaneous solution (Lantus U-100 Insulin) 40 units SC HS Diabetes 04/25/16
metformin 1,000 mg tablet 1,000 mg PO BID Diabetes 04/25/16
atorvastatin 40 mg tablet (Lipitor) 40 mg PO HS High Cholesterol 01/01/24
carvedilol 6.25 mg tablet (Coreg) 6.25 mg PO BID Heart Disease/Condition 01/01/24
vitamins A,C,J-qqqe-bttoan 2,148 mcg-113 mg-45 mg-17.4 mg tablet (PreserVision AREDS) 1 tab PO BID Supplement 01/01/24
aspirin 81 mg tablet,delayed release 81 mg PO DAILY Blood Clot Prevention/Tx #0 tabs 01/03/24
clopidogrel 75 mg tablet 75 mg PO DAILY #30 tabs 01/03/24
Home Medication Changes
New medication Plavix
Pending Results: No
[2024-01-03 12:11] VITALS: BP 155/88; PULSE 75; O2SAT 95
[2024-01-03 12:11] LABS: Glucose - Point of Care 100 mg/dl (70-99)
[2024-01-03 12:15] VITALS: BP 155/88; PULSE 75; O2SAT 95
--- NOTE | 2024-01-03 12:33 | PTOTSP ---
PATIENT ABLE TO MOBILIZE INDEPENDENTLY ON LEVEL SURFACES WELL ELEVATIONS. WOULD BENEFIT FROM OUTPATIENT THERAPY TO ADDRESS PREVIOUS BALANCE ISSUES. ANTHONY TEXTED CASE MANAGEMENT. PATIENT TO DISCHARGE TO HOME TODAY.
--- NOTE | 2024-01-03 14:32 | CM ---
MD entered order for discharge.
Spoke with pt he said he was ready for discharge
Family drove him home.
Offered Vn he declined need.
PLAN Home no needs
== END 2024-01-03 13:05 | disposition home or self-care (01) | DRG 66 ==
LOC: 3 WEST ACU 08:37
PROVIDERS: Internal Medicine; Nurse Practitioner; ADMITTING PHYSICIAN Hospitalist; ATTENDING PHYSICIAN Internal Medicine; CONSULT PHYSICIAN Psychiatry & Neurology Neurology; EMERGENCY PHYSICIAN Emergency Medicine; FAMILY PHYSICIAN Family Medicine
PROC: B24BZZZ Ultrasonography of Heart with Aorta (ICD-10-PCS; 2024-01-02)
DX: I63.011 Cerebral infarction due to thrombosis of right vertebral artery (principal); E11.22 Type 2 diabetes mellitus with diabetic chronic kidney disease; E11.59 Type 2 diabetes mellitus with other circulatory complications; I12.9 Hypertensive chronic kidney disease with stage 1 through stage 4 chronic kidney disease, or unspecified chronic kidney disease; N18.30 Chronic kidney disease, stage 3 unspecified; H49.02 Third [oculomotor] nerve palsy, left eye; H53.2 Diplopia; I48.0 Paroxysmal atrial fibrillation; E78.5 Hyperlipidemia, unspecified; I25.10 Atherosclerotic heart disease of native coronary artery without angina pectoris; I25.5 Ischemic cardiomyopathy; M10.9 Gout, unspecified; Z79.01 Long term (current) use of anticoagulants; Z79.4 Long term (current) use of insulin; Z79.84 Long term (current) use of oral hypoglycemic drugs; Z79.82 Long term (current) use of aspirin; Z91.81 History of falling; Z79.899 Other long term (current) drug therapy; Z95.1 Presence of aortocoronary bypass graft
CPT/HCPCS: 70450; 70544; 70553; 80053; 80061; 82607; 82728; 82746; 82962; 83036; 84439; 84443; 84484; 85025; 85652; 86041; 93005; 93306; 93880; 97162; 97166; 99285; A9575

== ENCOUNTER 2024-01-24 07:23 | Outpatient (RCR) | payer OTHER, SELFPAY | END 2024-01-24 23:59 | disposition home or self-care (01) | LOC: ROT 07:23 | PROVIDERS: ATTENDING PHYSICIAN Nurse Practitioner Adult Health; FAMILY PHYSICIAN Family Medicine | DX: I63.9 Cerebral infarction, unspecified (principal); Z73.6 Limitation of activities due to disability | CPT/HCPCS: 97110; 97167 ==